=== PATIENT | female | born 1955 ===

== ENCOUNTER 2021-01-24 08:12 | Day surgery (SDC) | payer OTHER | END 2021-01-24 12:35 | disposition home or self-care (01) | LOC: AMB-ENDOS 08:12 | PROVIDERS: ATTEND Colon & Rectal Surgery | DX: D12.0 Benign neoplasm of cecum (principal); D12.2 Benign neoplasm of ascending colon; D12.3 Benign neoplasm of transverse colon; K64.8 Other hemorrhoids; Z20.822 Contact with and (suspected) exposure to COVID-19; Z12.11 Encounter for screening for malignant neoplasm of colon ==